=== PATIENT | male | born 1960 | race Asian ===

== ENCOUNTER 2022-04-24 12:13 | Emergency (ER) | payer SELFPAY ==
[2022-04-24 12:25] VITALS: BP 134/83; PULSE 96; RESP 19; TEMP 97.8; BMI 34.2
== END 2022-04-24 13:01 | disposition home or self-care (01) ==
LOC: JER 12:13 → JERFT 12:13
DX: B02.9 Zoster without complications (principal)
CPT/HCPCS: 99281-25